=== PATIENT | male | born 1975 | race American Indian/Alaskan Native ===

== ENCOUNTER 2017-10-21 22:02 | Emergency (ER) | payer BC, OTHER ==
[2017-10-21] MEDS ORDERED: Clindamycin Phosphate 900 MG in Sodium Chloride 0.9% 100 ML IV ONE (22:33)
--- NOTE | 2017-10-21 22:37 | EDM.PDOC ---
ED HPI GENERAL MEDICAL PROBLEM - General Chief Complaint: Skin Complaint Stated Complaint: ABSCESS BACK OF NECK [id number] Time Seen by Provider: 10/21/17 22:35 Source of Information: Reports: Patient History Limitations: Reports: No Limitations - History of Present Illness INITIAL COMMENTS - FREE TEXT/NARRATIVE: c/o worsening of abscess back of neck past week. has appt for CAT next week but feeling worse tonight from getting bigger & painful Posterior Neck Pain Score (Numeric/FACES): 6 - Related Data Allergies Allergy/AdvReac Type Severity Reaction Status Date / Time Penicillins Allergy Unknown Cannot Verified 10/21/17 22:22 Remember adhesive Allergy Swelling Verified 10/21/17 22:22 ammonium alum [From Carmex] Allergy Swelling Verified 10/21/17 22:22 bacitracin Allergy Swelling Verified 10/21/17 22:22 bacitracin zinc Allergy Swelling Verified 10/21/17 22:22 [From Neosporin ([id number])] camphor* [From Carmex] Allergy Swelling Verified 10/21/17 22:22 menthol [From Carmex] Allergy Swelling Verified 10/21/17 22:22 neomycin sulfate Allergy Swelling Verified 10/21/17 22:22 [From Neosporin ([id number])] phenol [From Carmex] Allergy Swelling Verified 10/21/17 22:22 polymyxin B Allergy Swelling Verified 10/21/17 22:22 [From Neosporin ([id number]-jgn-[id number])] salicylic acid [From Carmex] Allergy Swelling Verified 10/21/17 22:22 tomato Allergy Rash Verified 10/21/17 22:22 Home Meds: Home Meds Metoprolol Tartrate 100 mg PO DAILY 08/10/13 [History] Budesonide/Formoterol Fumarate [Symbicort 80-4.5 Mcg Inhaler] 1 puff INH ASDIRECTED PRN 06/24/15 [History] Albuterol Sulfate [Proair Hfa] 2 puff INH QID PRN 12/12/15 [History] Past Medical History HEENT History: Reports: Impaired Vision Other HEENT History: wears corrective lenses Cardiovascular History: Reports: Hypertension Respiratory History: Reports: Asthma Musculoskeletal History: Reports: Fracture - Infectious Disease History Infectious Disease History: Reports: Chicken Pox - Past Surgical History GI Surgical History: Reports: Cholecystectomy Social & Family History - Family History Family Medical History: Noncontributory - Tobacco Use Smoking Status *Q: Former Smoker Years of Tobacco use: 23 Packs/Tins Daily: 1.5 Used Tobacco, but Quit: Yes Month/Year Tobacco Last Used: 24 Second Hand Smoke Exposure: No - Caffeine Use Caffeine Use: Reports: Coffee, Tea - Alcohol Use Days Per Week of Alcohol Use: 0 - Recreational Drug Use Recreational Drug Use: No ED ROS GENERAL - Review of Systems Review Of Systems: ROS reveals no pertinent complaints other than HPI. ED EXAM, SKIN/RASH Exam: See Below Exam Limited By: No Limitations General Appearance: Alert, WD/WN, Mild Distress, Other ([place]) Ears: Hearing Grossly Normal Throat/Mouth: Normal Voice, No Airway Compromise Head: Atraumatic Neck: Non-Tender, Full Range of Motion Respiratory/Chest: No Respiratory Distress Cardiovascular: Regular Rate, Rhythm GI/Abdominal: Soft, Non-Tender Neurological: Alert, Oriented, Normal Cognition, Normal Gait, No Motor/Sensory Deficits Psychiatric: Flat Affect Skin: Warm, Intact, Normal Color Location, Skin: Neck Characteristics: Other (abscess) Associated features: Warmth, Tenderness, Swelling, Inflammation. No: Lymphangitis Course - Vital Signs Last Recorded V/S: Last Vital Signs Temp 37.6 C 10/22/17 00:53 Pulse 105 H 10/22/17 00:53 Resp 20 10/22/17 00:53 BP 134/83 10/22/17 00:53 Pulse Ox 98 10/22/17 00:53 - Orders/Labs/Meds Orders: Active Orders 24 hr Category Date Time Status CULTURE BLOOD [BC] Stat Lab 10/21/17 22:45 Received Sodium Chloride 0.9% [Normal Saline] 1,000 ml Med 10/21/17 22:45 Active IV ASDIRECTED Medication Orders Sodium Chloride (Normal Saline) 1,000 mls @ 500 mls/hr IV ASDIRECTED GENNY Last Admin: 10/21/17 23:30 Dose: 500 mls/hr Labs: Laboratory Tests 10/21/17 10/21/17 10/21/17 Range/Units 22:48 22:48 22:48 WBC 13.2 H (5.0-10.0) 10^3/uL RBC 4.95 (4.6-6.2) 10^6/uL Hgb 13.5 L (14.0-18.0) g/dL Hct 41.1 (40.0-54.0) % MCV 83.0 (80-100) fL MCH 27.3 (27.0-34.0) pg MCHC 32.8 L (33.0-35.0) g/dL Plt Count 312 (150-450) 10^3/uL Neut % (Auto) 71.3 (42.2-75.2) % Lymph % (Auto) 20.3 L (20.5-50.1) % [place] % (Auto) 6.6 (2-8) % Eos % (Auto) 1.6 (1.0-3.0) % Baso % (Auto) 0.2 (0.0-1.0) % Sodium 133 L (135-145) mmol/L Potassium 3.9 (3.6-5.0) mmol/L Chloride 98 L (101-111) mmol/L Carbon Dioxide 27.0 (21.0-31.0) mmol/L Anion Gap 11.9 BUN 10 (7-18) mg/dL Creatinine 0.7 (0.6-1.3) mg/dL Est Cr Clr Drug Dosing 165.98 mL/min Estimated GFR (MDRD) > 60 BUN/Creatinine Ratio 14.28 Glucose 106 H (74-105) mg/dL Lactic Acid 1.3 (0.5-2.2) mmol/L Calcium 8.7 (8.4-10.2) mg/dl Total Bilirubin 0.5 (0.2-1.0) mg/dL AST 20 (10-42) IU/L ALT 20 (10-60) IU/L Alkaline Phosphatase 68 (42-121) IU/L Total Protein 9.1 H (6.7-8.2) g/dl Albumin 3.0 L (3.2-5.5) g/dl Globulin 6.1 Albumin/Globulin Ratio 0.49 Meds: Medications Generic Name Dose Route Start Last Admin Trade Name Freq PRN Reason Stop Dose Admin Sodium Chloride 1,000 mls @ 500 mls/hr 10/21/17 22:45 10/21/17 23:30 Normal Saline IV 500 mls/hr ASDIRECTED GENNY Administration Discontinued Medications Generic Name Dose Route Start Last Admin Trade Name Freq PRN Reason Stop Dose Admin Hydrocodone Bitart/Acetaminophen 1 tab 10/22/17 01:09 [place] 325-10 Mg PO 10/22/17 01:10 ONETIME ONE Clindamycin Phosphate 900 mg/ 106 mls @ 200 mls/hr 10/21/17 22:33 10/21/17 22 :57 Sodium Chloride IV 10/21/17 23:04 200 mls/hr ONETIME ONE Administration Iopamidol 100 ml 10/21/17 23:37 10/21/17 23:47 Isovue-300 (61%) IVPUSH 10/21/17 23:38 100 ml ONETIME ONE Administration - Re-Assessments/Exams Free Text/Narrative Re-Assessment/Exam: 10/22/17 01:[address] Rey @ who kindly accepted pt. Departure - Departure Time of Disposition: 01:11 Disposition: DC/Tfer to Acute Hospital 02 Condition: Good Clinical Impression: Abscess - Discharge Information Forms: Interfacility Transfer EMTALA - My Orders Last 24 Hours: My Active Orders 10/21/17 22:45 CULTURE BLOOD [BC] Stat Sodium Chloride 0.9% [Normal Saline] 1,000 ml IV ASDIRECTED - Assessment/Plan Last 24 Hours: My Active Orders 10/21/17 22:45 CULTURE BLOOD [BC] Stat Sodium Chloride 0.9% [Normal Saline] 1,000 ml IV ASDIRECTED
[2017-10-21] MEDS ORDERED: Sodium Chloride 0.9% 1,000 ML IV SCH (22:45)
[2017-10-21 23:16] LABS: ANION GAP 11.9; CHLORIDE,CL 98 mmol/L (101-111); SODIUM,NA 133 mmol/L (135-145)
[2017-10-21] MEDS ORDERED: Iopamidol 612 MG/ML 100 ML Bottle IVPUSH ONE (23:37)
[2017-10-22 00:54] VITALS: BP 134/83
[2017-10-22] MEDS ORDERED: Acetaminophen/HYDROcodone 325-10 MG Tab PO ONE (01:09)
== END 2017-10-22 01:30 ==
LOC: DL.ED 22:02
DX: L02.11 Cutaneous abscess of neck (principal); I10 Essential (primary) hypertension; Z88.0 Allergy status to penicillin; Z88.8 Allergy status to other drugs, medicaments and biological substances; Z91.018 Allergy to other foods; Z79.899 Other long term (current) drug therapy; Z87.891 Personal history of nicotine dependence
CPT/HCPCS: 36415; 70491; 80053; 83605; 85025; 87040; 96361; 96365; 99284; A9270; J7030; J7050; Q9967; S0077

== ENCOUNTER 2017-10-25 21:35 | Emergency (ER) | payer BC, OTHER ==
[2017-10-25 22:35] LABS: CHLORIDE,CL 94 mmol/L (101-111); SODIUM,NA 132 mmol/L (135-145)
[2017-10-25] MEDS ORDERED: cefTRIAXone 2 GM, Lidocaine 1% 4.2 ML IM ONE ×2 (23:38)
--- NOTE | 2017-10-25 23:45 | EDM.PDOC ---
ED HPI GENERAL MEDICAL PROBLEM - General Chief Complaint: Fever Stated Complaint: [id number] POST SURG- FEVER SHAKES SOB Time Seen by Provider: 10/25/17 23:41 Source of Information: Reports: Patient History Limitations: Reports: No Limitations - History of Present Illness INITIAL COMMENTS - FREE TEXT/NARRATIVE: increased cough, fever. area around abscess on right side getting bigger, No increase in drainage or redness Treatments BARYTES GRINDER: Reports: Acetaminophen, NSAIDS Neck Pain Score (Numeric/FACES): 3 - Related Data Allergies Allergy/AdvReac Type Severity Reaction Status Date / Time Penicillins Allergy Unknown Cannot Verified 10/25/17 21:52 Remember adhesive Allergy Swelling Verified 10/25/17 21:52 ammonium alum [From Carmex] Allergy Swelling Verified 10/25/17 21:52 bacitracin Allergy Swelling Verified 10/25/17 21:52 bacitracin zinc Allergy Swelling Verified 10/25/17 21:52 [From Neosporin ([id number])] camphor* [From Carmex] Allergy Swelling Verified 10/25/17 21:52 menthol [From Carmex] Allergy Swelling Verified 10/25/17 21:52 neomycin sulfate Allergy Swelling Verified 10/25/17 21:52 [From Neosporin ([id number]-[id number])] phenol [From Carmex] Allergy Swelling Verified 10/25/17 21:52 polymyxin B Allergy Swelling Verified 10/25/17 21:52 [From Neosporin ([id number]-[id number])] salicylic acid [From Carmex] Allergy Swelling Verified 10/25/17 21:52 tomato Allergy Rash Verified 10/25/17 21:52 Home Meds: Home Meds Metoprolol Tartrate 100 mg PO DAILY 08/10/13 [History] Budesonide/Formoterol Fumarate [Symbicort 80-4.5 Mcg Inhaler] 1 puff INH ASDIRECTED PRN 06/24/15 [History] Albuterol Sulfate [Proair Hfa] 2 puff INH QID PRN 12/12/15 [History] Cephalexin 1 cap PO QID 10/25/17 [History] Clindamycin HCl [Cleocin] 1 cap PO TID 10/25/17 [History] Hydrochlorothiazide 1 tab PO DAILY 10/25/17 [History] Past Medical History HEENT History: Reports: Impaired Vision Other HEENT History: wears corrective lenses Cardiovascular History: Reports: Hypertension Respiratory History: Reports: Asthma Musculoskeletal History: Reports: Fracture Dermatologic History: Reports: Other (See Below) Other Dermatologic History: abcesses in the back of his neck - Infectious Disease History Infectious Disease History: Reports: Chicken Pox - Past Surgical History GI Surgical History: Reports: Cholecystectomy Dermatological Surgical History: Reports: Other (See Below) Social & Family History - Family History Family Medical History: Noncontributory - Tobacco Use Smoking Status *Q: Former Smoker Years of Tobacco use: 26 Packs/Tins Daily: 1.5 Used Tobacco, but Quit: Yes Month/Year Tobacco Last Used: 2015 Second Hand Smoke Exposure: No - Caffeine Use Caffeine Use: Reports: Coffee, Tea - Alcohol Use Days Per Week of Alcohol Use: 0 - Recreational Drug Use Recreational Drug Use: No ED ROS GENERAL - Review of Systems Review Of Systems: See Below Constitutional: Reports: Chills HEENT: Denies: Throat Swelling Respiratory: Reports: Shortness of Breath, Cough. Denies: Wheezing, Sputum Cardiovascular: Reports: No Symptoms GI/Abdominal: Reports: No Symptoms Musculoskeletal: Reports: No Symptoms Skin: Reports: Wound (open surgical incisions in posterior neck from I&D) Neurological: Reports: No Symptoms ED EXAM, GENERAL - Physical Exam Exam: See Below Exam Limited By: No Limitations General Appearance: Alert, No Apparent Distress Eye Exam: Bilateral Eye: EOMI Ears: Normal External Exam, Normal TMs Nose: Normal Inspection Throat/Mouth: Normal Inspection Head: Atraumatic, Normocephalic Neck: Other (posterio surgical incisions to base at collar line left 2cm clean packed scant yellow pink drainage, right 2cm no drainage no packing lateral 2x2cm induration withut redness) Respiratory/Chest: No Respiratory Distress, Lungs Clear Cardiovascular: Normal Peripheral Pulses GI/Abdominal: Normal Bowel Sounds Back Exam: Normal Inspection Extremities: Normal Inspection Neurological: Alert, Oriented Psychiatric: Normal Affect Skin Exam: Warm, Dry, Wound/Incision Course - Vital Signs Last Recorded V/S: Last Vital Signs Temp 97.3 F 10/26/17 00:03 Pulse 91 10/26/17 00:03 Resp 16 10/26/17 00:03 BP 130/73 10/26/17 00:03 Pulse Ox 94 L 10/26/17 00:03 - Orders/Labs/Meds Orders: Active Orders 24 hr Category Date Time Status CULTURE BLOOD [BC] Stat Lab 10/25/17 22:05 Received CULTURE BLOOD [BC] Stat Lab 10/25/17 22:10 Results Blood Culture x2 Reflex Set [OM.PC] Stat Oth 10/25/17 21:52 Ordered Labs: Laboratory Tests 10/25/17 10/25/17 10/25/17 Range/Units 22:05 22:05 22:05 WBC 8.4 (5.0-10.0) 10^3/uL RBC 4.34 L (4.6-6.2) 10^6/uL Hgb 11.8 L D (14.0-18.0) g/dL Hct 36.1 L (40.0-54.0) % MCV 83.2 (80-100) fL MCH 27.2 (27.0-34.0) pg MCHC 32.7 L (33.0-35.0) g/dL Plt Count 264 (150-450) 10^3/uL Neut % (Auto) 72.4 (42.2-75.2) % Lymph % (Auto) 15.5 L (20.5-50.1) % [place] % (Auto) 11.2 H (2-8) % Eos % (Auto) 0.8 L (1.0-3.0) % Baso % (Auto) 0.1 (0.0-1.0) % Sodium 132 L (135-145) mmol/L Potassium 3.5 L (3.6-5.0) mmol/L Chloride 94 L (101-111) mmol/L Carbon Dioxide 30.0 (21.0-31.0) mmol/L Anion Gap 11.5 BUN 10 (7-18) mg/dL Creatinine 0.8 (0.6-1.3) mg/dL Est Cr Clr Drug Dosing 145.23 mL/min Estimated GFR (MDRD) > 60 BUN/Creatinine Ratio 12.50 Glucose 218 H (74-105) mg/dL Lactic Acid 2.5 H (0.5-2.2) mmol/L Calcium 8.1 L (8.4-10.2) mg/dl Total Bilirubin 0.3 (0.2-1.0) mg/dL AST 25 (10-42) IU/L ALT 22 (10-60) IU/L Alkaline Phosphatase 67 (42-121) IU/L Total Protein 8.0 (6.7-8.2) g/dl Albumin 2.9 L (3.2-5.5) g/dl Globulin 5.1 Albumin/Globulin Ratio 0.57 Meds: Medications Discontinued Medications Generic Name Dose Route Start Last Admin Trade Name Shaylee PRN Reason Stop Dose Admin Ceftriaxone Sodium 2 gm/ 0 gm 10/25/17 23:38 10/25/17 23:46 Lidocaine HCl 4.2 ml IM 10/25/17 23:39 4.2 inj ONETIME ONE Administration Departure - Departure Time of Disposition: 23:42 Disposition: Home, Self-Care 01 Condition: Good Clinical Impression: Abscess - Discharge Information Instructions: Skin Abscess, [id number] Referrals: Viral Izaguirre MD [Primary Care Provider] - Forms: ED Department Discharge Care Plan Goals: TC to surgeon in am to update on wound size Nebulizer treatment every 4-6 hours as needed tylenol ibuprofen for fever'/ discomfort warm pack to left neck - My Orders Last 24 Hours: My Active Orders 10/25/17 21:52 Blood Culture x2 Reflex Set [OM.PC] Stat 10/25/17 22:05 CULTURE BLOOD [BC] Stat 10/25/17 22:10 CULTURE BLOOD [BC] Stat - Assessment/Plan Last 24 Hours: My Active Orders 10/25/17 21:52 Blood Culture x2 Reflex Set [OM.PC] Stat 10/25/17 22:05 CULTURE BLOOD [BC] Stat 10/25/17 22:10 CULTURE BLOOD [BC] Stat
[2017-10-26 00:05] VITALS: BP 130/73
== END 2017-10-26 00:09 | disposition home or self-care (01) ==
LOC: DL.ED 21:35
DX: L02.11 Cutaneous abscess of neck (principal); I10 Essential (primary) hypertension; J45.909 Unspecified asthma, uncomplicated; Z88.0 Allergy status to penicillin; Z88.1 Allergy status to other antibiotic agents; Z88.8 Allergy status to other drugs, medicaments and biological substances; Z79.899 Other long term (current) drug therapy; Z87.891 Personal history of nicotine dependence
CPT/HCPCS: 36415; 71046; 80053; 83605; 85025; 87040; 87804; 96372; 99283; J0696

== ENCOUNTER 2019-05-24 08:50 | Emergency (ER) | payer BC, OTHER ==
[2019-05-24] MEDS ORDERED: Albuterol/Ipratropium 3.0-0.5 MG/3 ML Neb Soln NEB ONE (09:47)
[2019-05-24] MEDS ORDERED: methylPREDNISolone Sodium Succinate 125 MG/2 ML SDV IM ONE (10:08)
[2019-05-24 10:43] VITALS: BP 114/49; PULSE 97
--- NOTE | 2019-05-24 12:43 | EDM.PDOC ---
Scribed by Melani Pop 05/24/19 1029 for Mary Kate Membreno NP ED HPI GENERAL MEDICAL PROBLEM - General Chief Complaint: Respiratory Problem Stated Complaint: SICK Time Seen by Provider: 05/24/19 10:00 Source of Information: Reports: Patient, RN, RN Notes Reviewed History Limitations: Reports: No Limitations - History of Present Illness INITIAL COMMENTS - FREE TEXT/NARRATIVE: Patient presents to ER with complaint of 4 days of cough and expiratory wheezes. He has had yellow/green productive for 3 days. He has a history of asthma. Using his inhaler twice a day while sick. No fevers. Mild fatigue Onset Date: 05/21/19 Duration: Getting Worse Location: Reports: Chest, Other (cough) Quality: Reports: Ache Severity: Moderate Improves with: Reports: None Worsens with: Reports: None Associated Symptoms: Reports: No Other Symptoms - Related Data Allergies Allergy/AdvReac Type Severity Reaction Status Date / Time Penicillins Allergy Unknown Cannot Verified 05/24/19 08:59 Remember adhesive Allergy Swelling Verified 05/24/19 08:59 ammonium alum [From Carmex] Allergy Swelling Verified 05/24/19 08:59 bacitracin Allergy Swelling Verified 05/24/19 08:59 bacitracin zinc Allergy Swelling Verified 05/24/19 08:59 [From Neosporin (nny-hfy-cscrt)] camphor* [From Carmex] Allergy Swelling Verified 05/24/19 08:59 menthol [From Carmex] Allergy Swelling Verified 05/24/19 08:59 neomycin sulfate Allergy Swelling Verified 05/24/19 08:59 [From Neosporin ([id number]-[id number]-[id number])] phenol [From Carmex] Allergy Swelling Verified 05/24/19 08:59 polymyxin B Allergy Swelling Verified 05/24/19 08:59 [From Neosporin (cti-bsx-knvsx)] salicylic acid [From Carmex] Allergy Swelling Verified 05/24/19 09:00 tomato Allergy Rash Verified 05/24/19 09:00 Home Meds: Home Meds Metoprolol Tartrate 100 mg PO DAILY 08/10/13 [History] Budesonide/Formoterol Fumarate [Symbicort 80-4.5 MCG] 1 puff INH ASDIRECTED PRN 06/24/15 [History] Albuterol Sulfate [Proair Hfa] 2 puff INH QID PRN 12/12/15 [History] Past Medical History HEENT History: Reports: Impaired Vision Other HEENT History: wears corrective lenses Cardiovascular History: Reports: Hypertension Respiratory History: Reports: Asthma Musculoskeletal History: Reports: Fracture Dermatologic History: Reports: Other (See Below) Other Dermatologic History: abcesses in the back of his neck - Infectious Disease History Infectious Disease History: Reports: Chicken Pox - Past Surgical History GI Surgical History: Reports: Cholecystectomy Dermatological Surgical History: Reports: Other (See Below) Social & Family History - Family History Family Medical History: Noncontributory - Caffeine Use Caffeine Use: Reports: Coffee, Tea ED ROS GENERAL - Review of Systems Review Of Systems: ROS reveals no pertinent complaints other than HPI. ED EXAM, GENERAL - Physical Exam Exam: See Below Exam Limited By: No Limitations General Appearance: Alert, WD/WN, No Apparent Distress Eye Exam: Bilateral Eye: EOMI, Normal Inspection, PERRL Ears: Normal External Exam, Normal Canal, Hearing Grossly Normal, Normal TMs Nose: Normal Inspection, Normal Mucosa, No Blood Throat/Mouth: Normal Inspection, Normal Lips, Normal Teeth, Normal Gums, Normal Oropharynx, Normal Voice, No Airway Compromise Head: Atraumatic, Normocephalic Neck: Normal Inspection, Supple, Non-Tender, Full Range of Motion Respiratory/Chest: Other (bilateral mild expiratory wheeze. DuoNeb treatment x1. Improved after treatment but still mild exp wheeze) Cardiovascular: Normal Peripheral Pulses, Regular Rate, Rhythm, No Edema, No Gallop, No JVD, No Murmur, No Rub GI/Abdominal: Normal Bowel Sounds, Soft, Non-Tender, No Organomegaly, No Distention, No Abnormal Bruit, No Mass (Male) Exam: Deferred Rectal (Males) Exam: Deferred Back Exam: Normal Inspection, Full Range of Motion, NT Extremities: Normal Inspection, Normal Range of Motion, Non-Tender, Normal Capillary Refill, No Pedal Edema Neurological: Alert, Oriented, CN II-XII Intact, Normal Cognition, Normal Gait, Normal Reflexes, No Motor/Sensory Deficits Psychiatric: Normal Affect, Normal Mood Skin Exam: Warm, Dry, Intact, Normal Color, No Rash Course - Vital Signs Last Recorded V/S: Last Vital Signs Temp 37.0 C 05/24/19 10:38 Pulse 97 05/24/19 10:38 Resp 20 05/24/19 10:38 BP 114/49 L 05/24/19 10:38 Pulse Ox 0 L 05/24/19 10:38 - Orders/Labs/Meds Orders: Active Orders 24 hr Category Date Time Status RT Aerosol Therapy [RC] ASDIRECTED Care 05/24/19 09:48 Active Meds: Medications Discontinued Medications Generic Name Dose Route Start Last Admin Trade Name Freq PRN Reason Stop Dose Admin Albuterol/Ipratropium 3 ml 05/24/19 09:47 05/24/19 09:55 Duoneb 3.0-0.5 Mg/3 Ml NEB 05/24/19 09:48 3 ml ONETIME ONE Administration Methylprednisolone Sodium Succinate 125 mg 05/24/19 10:08 05/24/19 10:18 Solu-Medrol IM 05/24/19 10:09 125 mg ONETIME ONE Administration - Re-Assessments/Exams Free Text/Narrative Re-Assessment/Exam: 05/24/19 12:41 Improved after duo neb; better air exchange; 02 sat 93% after tx. With exp wheeze continued; will give solumedrol IM and sent home on prednisone, duonebs. Departure - Departure Time of Disposition: 10:25 Disposition: Home, Self-Care 01 Condition: Good Clinical Impression: Bronchitis Exacerbation of asthma Qualifiers: Asthma severity: moderate Asthma persistence: unspecified Qualified Code(s): J45.901 - Unspecified asthma with (acute) exacerbation - Discharge Information *PRESCRIPTION DRUG MONITORING PROGRAM REVIEWED*: Not Applicable *COPY OF PRESCRIPTION DRUG MONITORING REPORT IN PATIENT CHUNG: Not Applicable Instructions: Asthma, Adult Referrals: Stewart Michaud [Primary Care Provider] - Forms: ED Department Discharge Additional Instructions: Increase your neb or inhaler to q 4 hours x 1 week; then back to your usual. Prednisone - start tonight. 40 mg. Azithromyicn - Take two tab now. Return if not improving - My Orders Last 24 Hours: My Active Orders 05/24/19 09:48 RT Aerosol Therapy [RC] ASDIRECTED - Assessment/Plan Last 24 Hours: My Active Orders 05/24/19 09:48 RT Aerosol Therapy [RC] ASDIRECTED I have read and agree with the documentation that has been completed regarding this visit. By signing this record, I attest that the documentation was completed in my physical presence and is an accurate record of the encounter.
== END 2019-05-24 10:38 | disposition home or self-care (01) ==
LOC: DL.ED 08:50
DX: J45.901 Unspecified asthma with (acute) exacerbation (principal); I10 Essential (primary) hypertension; Z88.0 Allergy status to penicillin; Z88.8 Allergy status to other drugs, medicaments and biological substances; Z88.1 Allergy status to other antibiotic agents; Z91.018 Allergy to other foods; Z91.048 Other nonmedicinal substance allergy status; Z79.899 Other long term (current) drug therapy
CPT/HCPCS: 94640; 96372; 99283; J2930; J7620-GY

== ENCOUNTER 2019-09-13 09:51 | Emergency (ER) | payer BC, OTHER ==
[2019-09-13 10:12] VITALS: BP 131/76; PULSE 77
[2019-09-13] MEDS ORDERED: Clindamycin Phosphate 900 MG in Sodium Chloride 0.9% 100 ML IV ONE (10:21)
[2019-09-13] MEDS ORDERED: Lidocaine 1% 30 ML SDV INJECT ONE (10:21)
[2019-09-13] MEDS ORDERED: Bupivacaine 0.25% 10 ML SDV INJECT ONE (10:22)
[2019-09-13] MEDS ORDERED: HYDROmorphone 1 MG/ML Syringe IVPUSH ONE (10:22)
[2019-09-13] MEDS ORDERED: Ondansetron 4 MG/2 ML SDV IV ONE (10:22)
[2019-09-13] MEDS ORDERED: Bupivacaine 0.25% 10 ML SDV ONE (10:37)
[2019-09-13 10:54] LABS: ANION GAP 12.9; CHLORIDE,CL 99 mmol/L (101-111); SODIUM,NA 133 mmol/L (135-145)
--- NOTE | 2019-09-13 11:22 | EDM.PDOC ---
Scribed by Melani Pop 09/13/19 1120 for Neeraj Brenner MD ED HPI GENERAL MEDICAL PROBLEM - General Chief Complaint: Skin Complaint Stated Complaint: INFECTION Time Seen by Provider: 09/13/19 10:07 Source of Information: Reports: Patient, RN, RN Notes Reviewed History Limitations: Reports: No Limitations - History of Present Illness INITIAL COMMENTS - FREE TEXT/NARRATIVE: Patient presents to ER by POV with two day history of draining abscess to right axilla. He has had these before. Denies being told of any history of MRSA. He states it has stopped draining now. Has not had any antibiotics in last month. Onset Date: 09/11/19 Duration: Getting Worse Location: Reports: Other (right axilla) Quality: Reports: Ache, Stabbing Improves with: Reports: None Worsens with: Reports: None Associated Symptoms: Reports: No Other Symptoms Right Axillary Pain Score (Numeric/FACES): 6 - Related Data Allergies Allergy/AdvReac Type Severity Reaction Status Date / Time Penicillins Allergy Unknown Cannot Verified 09/13/19 10:12 Remember adhesive Allergy Swelling Verified 09/13/19 10:12 ammonium alum [From Carmex] Allergy Swelling Verified 09/13/19 10:12 bacitracin Allergy Swelling Verified 09/13/19 10:12 bacitracin zinc Allergy Swelling Verified 09/13/19 10:12 [From Neosporin ([id number])] camphor* [From Carmex] Allergy Swelling Verified 09/13/19 10:12 menthol [From Carmex] Allergy Swelling Verified 09/13/19 10:12 neomycin sulfate Allergy Swelling Verified 09/13/19 10:12 [From Neosporin ([id number])] phenol [From Carmex] Allergy Swelling Verified 09/13/19 10:12 polymyxin B Allergy Swelling Verified 09/13/19 10:12 [From Neosporin ([id number])] salicylic acid [From Carmex] Allergy Swelling Verified 09/13/19 10:12 tomato Allergy Rash Verified 09/13/19 10:12 Home Meds: Home Meds Metoprolol Tartrate 100 mg PO DAILY 08/10/13 [History] Budesonide/Formoterol Fumarate [Symbicort 80-4.5 MCG] 1 puff INH ASDIRECTED PRN 06/24/15 [History] Albuterol Sulfate [Proair Hfa] 2 puff INH QID PRN 12/12/15 [History] Past Medical History HEENT History: Reports: Impaired Vision Other HEENT History: wears corrective lenses Cardiovascular History: Reports: Hypertension Respiratory History: Reports: Asthma Gastrointestinal History: Reports: Cholelithiasis Genitourinary History: Reports: None Musculoskeletal History: Reports: Fracture Neurological History: Reports: None Psychiatric History: Reports: None Endocrine/Metabolic History: Reports: Diabetes, Type II Hematologic History: Reports: None Immunologic History: Reports: None Oncologic (Cancer) History: Reports: None Dermatologic History: Reports: Other (See Below) Other Dermatologic History: abcesses in the back of his neck - Infectious Disease History Infectious Disease History: Reports: Chicken Pox - Past Surgical History GI Surgical History: Reports: Cholecystectomy Dermatological Surgical History: Reports: Other (See Below) Social & Family History - Family History Family Medical History: Noncontributory - Caffeine Use Caffeine Use: Reports: Coffee, Tea - Living Situation & Occupation Living situation: Reports: , with Spouse Occupation: Employed ED ROS GENERAL - Review of Systems Review Of Systems: Comprehensive ROS is negative, except as noted in HPI. ED EXAM, SKIN/RASH Exam: See Below Exam Limited By: No Limitations General Appearance: Alert, No Apparent Distress, Obese Head: Atraumatic, Normocephalic Respiratory/Chest: No Respiratory Distress, Lungs Clear, Normal Breath Sounds, No Accessory Muscle Use, Chest Non-Tender Cardiovascular: Regular Rate, Rhythm Neurological: Alert, Oriented, No Motor/Sensory Deficits Psychiatric: Normal Mood Skin: Warm, Dry Location, Skin: Axillary (Rt with 3cm fluctuant abscess and 20cm mayank. surrounding erythema consistent with cellulitis.) ED SKIN PROCEDURES - I&D Site: Rt axills/chest wall Skin Prep: Chlorhexidine (Hibiciens), Saline, Sterile Drape Local Anesthesia: Lidocaine: 1% Plain (20cc) Area Incised With: 11 Blade Drainage: Purulent, Small Amount Probed to Break Up Loculations: Yes Packed With: 1/4 in. Iodoform Sterile Dressinx4(s) Complications: No Course - Vital Signs Last Recorded V/S: Last Vital Signs Temp 97 F 09/13/19 10:09 Pulse 77 09/13/19 10:09 Resp 16 09/13/19 10:09 BP 131/76 09/13/19 10:09 Pulse Ox 96 09/13/19 10:09 - Orders/Labs/Meds Orders: Active Orders 24 hr Category Date Time Status CULTURE WOUND [RM] Stat Lab 09/13/19 10:36 Received LACTIC ACID [CHEM] Stat Lab 09/13/19 10:28 Received Labs: Laboratory Tests 09/13/19 09/13/19 09/13/19 Range/Units 10:28 10:28 10:28 WBC 8.8 (5.0-10.0) 10^3/uL RBC 4.81 (4.6-6.2) 10^6/uL Hgb 13.6 L D (14.0-18.0) g/dL Hct 40.5 (40.0-54.0) % MCV 84.2 (80-100) fL MCH 28.3 (27.0-34.0) pg MCHC 33.6 (33.0-35.0) g/dL Plt Count 304 (150-450) 10^3/uL Neut % (Auto) 56.7 (42.2-75.2) % Lymph % (Auto) 31.9 (20.5-50.1) % [place] % (Auto) 8.9 H (2-8) % Eos % (Auto) 2.3 (1.0-3.0) % Baso % (Auto) 0.2 (0.0-1.0) % Sodium 133 L (135-145) mmol/L Potassium 3.9 (3.6-5.0) mmol/L Chloride 99 L (101-111) mmol/L Carbon Dioxide 25.0 (21.0-31.0) mmol/L Anion Gap 12.9 BUN 15 (7-18) mg/dL Creatinine 0.7 (0.6-1.3) mg/dL Est Cr Clr Drug Dosing 164.31 mL/min Estimated GFR (MDRD) > 60 Glucose 105 (74-105) mg/dL Calcium 9.0 (8.4-10.2) mg/dl C-Reactive Protein 1.2 (0.0-1.3) mg/dL Meds: Medications Discontinued Medications Generic Name Dose Route Start Last Admin Trade Name Freq PRN Reason Stop Dose Admin Bupivacaine HCl 10 ml 09/13/19 10:22 09/13/19 10:39 Sensorcaine-Mpf 0.25% INJECT 09/13/19 10:23 10 ml ONETIME ONE Administration Bupivacaine HCl Confirm 09/13/19 10:37 Sensorcaine-Mpf 0.25% Administered 09/13/19 10:38 Dose 10 ml .ROUTE .STK-MED ONE Hydromorphone HCl 1 mg 09/13/19 10:22 09/13/19 10:37 Dilaudid IVPUSH 09/13/19 10:23 1 mg ONETIME ONE Administration Clindamycin Phosphate 900 mg/ 106 mls @ 200 mls/hr 09/13/19 10:21 09/13/19 10 :36 Sodium Chloride IV 09/13/19 10:52 200 mls/hr ONETIME ONE Administration Lidocaine HCl 30 ml 09/13/19 10:21 09/13/19 10:38 Xylocaine-Mpf 1% INJECT 09/13/19 10:22 30 ml ONETIME ONE Administration Ondansetron HCl 4 mg 09/13/19 10:22 09/13/19 10:36 Zofran IV 09/13/19 10:23 4 mg ONETIME ONE Administration Departure - Departure Time of Disposition: 11:18 Disposition: Home, Self-Care 01 Condition: Good Clinical Impression: Abscess of right axilla, Cellulitis of axilla, right - Discharge Information *PRESCRIPTION DRUG MONITORING PROGRAM REVIEWED*: Not Applicable *COPY OF PRESCRIPTION DRUG MONITORING REPORT IN PATIENT CHUNG: Not Applicable Instructions: Skin Abscess, Cellulitis, Adult, Incision and Drainage, Care After Forms: ED Department Discharge Additional Instructions: Rx: Clindamycin 300mg Rx: Doxycycline 100mg Rx: [place] (Hydrocodone) 5mg/325mg If packing does not fall out on its own you may pull it out tomorrow. Follow up in clinic Sunday for recheck. Return to ER worse at any time. Sepsis Event Note - Focused Exam Vital Signs: Vital Signs Temp Pulse Resp BP Pulse Ox 09/13/19 10:09 97 F 77 16 131/76 96 Date Exam was Performed: 09/13/19 Time Exam was Performed: 11:17 - My Orders Last 24 Hours: My Active Orders 09/13/19 10:28 LACTIC ACID [CHEM] Stat 09/13/19 10:36 CULTURE WOUND [RM] Stat - Assessment/Plan Last 24 Hours: My Active Orders 09/13/19 10:28 LACTIC ACID [CHEM] Stat 09/13/19 10:36 CULTURE WOUND [RM] Stat I have read and agree with the documentation that has been completed regarding this visit. By signing this record, I attest that the documentation was completed in my physical presence and is an accurate record of the encounter.
== END 2019-09-13 11:22 | disposition home or self-care (01) ==
LOC: DL.ED 09:51
DX: L02.411 Cutaneous abscess of right axilla (principal); L03.111 Cellulitis of right axilla; Z90.49 Acquired absence of other specified parts of digestive tract
CPT/HCPCS: 10061; 36415; 80048; 83605; 85025; 86140; 87070; 87077; 87186; 96365; 96375; 99283; J1170; J2001; J2405; J3490; J7050; 10060

== ENCOUNTER 2020-06-30 17:24 | Emergency (ER) | payer BC, OTHER ==
[2020-06-30] MEDS ORDERED: Apixaban 5 MG Tab PO ONE (17:25)
[2020-06-30 17:52] VITALS: BP 139/75; PULSE 86
--- NOTE | 2020-06-30 18:07 | EDM.PDOC ---
ED HPI GENERAL MEDICAL PROBLEM - General Chief Complaint: Chest Pain Stated Complaint: HEART Time Seen by Provider: 06/30/20 17:50 Source of Information: Reports: Patient, Provider History Limitations: Reports: No Limitations - History of Present Illness INITIAL COMMENTS - FREE TEXT/NARRATIVE: This 44 yo male patient reports to the ED from the [facility] due to a 10 second episode of chest pain at 1300 today and an EKG demonstrating new onset A fib. The patient also had an EKG done on 06/28/20 demonstrating A fib. The patient reports no history of similar reports and no additional episodes of chest pain. Onset: Today Duration: Improving Location: Reports: Chest (left sided chest pain) Quality: Reports: Ache Severity: Mild Improves with: Reports: None Worsens with: Reports: None Context: Reports: Other Associated Symptoms: Reports: No Other Symptoms - Related Data Allergies Allergy/AdvReac Type Severity Reaction Status Date / Time Penicillins Allergy Unknown Cannot Verified 06/30/20 17:43 Remember adhesive Allergy Swelling Verified 06/30/20 17:43 ammonium alum [From Carmex] Allergy Swelling Verified 06/30/20 17:43 bacitracin Allergy Swelling Verified 06/30/20 17:43 bacitracin zinc Allergy Swelling Verified 06/30/20 17:43 [From Neosporin ([id number])] camphor* [From Carmex] Allergy Swelling Verified 06/30/20 17:43 menthol [From Carmex] Allergy Swelling Verified 06/30/20 17:43 neomycin sulfate Allergy Swelling Verified 06/30/20 17:43 [From Neosporin ([id number])] phenol [From Carmex] Allergy Swelling Verified 06/30/20 17:43 polymyxin B Allergy Swelling Verified 06/30/20 17:43 [From Neosporin ([id number])] salicylic acid [From Carmex] Allergy Swelling Verified 06/30/20 17:43 tomato Allergy Rash Verified 06/30/20 17:43 Home Meds: Home Meds Metoprolol Tartrate 100 mg PO DAILY 08/10/13 [History] Cetirizine [ZyrTEC] 10 mg PO DAILY 06/30/20 [History] Citalopram [Citalopram HBr] 20 mg PO DAILY 06/30/20 [History] Furosemide 20 mg PO DAILY 06/30/20 [History] Losartan [Cozaar] 50 mg PO DAILY 06/30/20 [History] Mometasone/Formoterol [Dulera 200 Mcg/5 Mcg Inhaler] 2 puff IH BID 06/30/20 [History] metFORMIN [Glucophage] 850 mg PO BID 06/30/20 [History] Past Medical History HEENT History: Reports: Impaired Vision Other HEENT History: wears corrective lenses Cardiovascular History: Reports: Hypertension Respiratory History: Reports: Asthma Gastrointestinal History: Reports: Cholelithiasis Genitourinary History: Reports: None Musculoskeletal History: Reports: Fracture Neurological History: Reports: None Psychiatric History: Reports: None, Depression Endocrine/Metabolic History: Reports: Diabetes, Type II Hematologic History: Reports: None Immunologic History: Reports: None Oncologic (Cancer) History: Reports: None Dermatologic History: Reports: Other (See Below) Other Dermatologic History: abcesses in the back of his neck - Infectious Disease History Infectious Disease History: Reports: Chicken Pox, Novel Coronavirus - Past Surgical History Head Surgeries/Procedures: Reports: None GI Surgical History: Reports: Cholecystectomy Dermatological Surgical History: Reports: Other (See Below) Social & Family History - Family History Family Medical History: No Pertinent Family History - Tobacco Use Tobacco Use Status *Q: Former Tobacco User Used Tobacco, but Quit: Yes Month/Year Tobacco Last Used: 08/2014 - Caffeine Use Caffeine Use: Reports: None - Recreational Drug Use Recreational Drug Use: No - Living Situation & Occupation Living situation: Reports: , with Spouse Occupation: Employed ED ROS GENERAL - Review of Systems Review Of Systems: Comprehensive ROS is negative, except as noted in HPI. ED EXAM, GENERAL - Physical Exam Exam: See Below Exam Limited By: No Limitations General Appearance: Alert, WD/WN, No Apparent Distress, Obese Eye Exam: Bilateral Eye: EOMI, Normal Inspection, PERRL Ears: Normal External Exam, Normal Canal, Hearing Grossly Normal, Normal TMs Nose: Normal Inspection, Normal Mucosa, No Blood Throat/Mouth: Normal Inspection, Normal Lips, Normal Teeth, Normal Gums, Normal Oropharynx, Normal Voice, No Airway Compromise Head: Atraumatic, Normocephalic Neck: Normal Inspection, Supple, Non-Tender, Full Range of Motion Respiratory/Chest: No Respiratory Distress, Lungs Clear, Normal Breath Sounds, No Accessory Muscle Use, Chest Non-Tender Cardiovascular: Normal Peripheral Pulses, No Edema, No Gallop, No JVD, No Murmur, No Rub, Irregularly Irregular GI/Abdominal: Normal Bowel Sounds, Soft, Non-Tender, No Organomegaly, No Distention, No Abnormal Bruit, No Mass, Pelvis Stable, Other (obese) (Male) Exam: Deferred Rectal (Males) Exam: Deferred Back Exam: Normal Inspection, Full Range of Motion, NT Extremities: Normal Inspection, Normal Range of Motion, Non-Tender, Normal Capillary Refill, No Pedal Edema Neurological: Alert, Oriented, CN II-XII Intact, Normal Cognition, Normal Gait, Normal Reflexes, No Motor/Sensory Deficits Psychiatric: Normal Affect, Normal Mood Skin Exam: Warm, Dry, Intact, Normal Color, No Rash Lymphatic: No Adenopathy Course - Vital Signs Last Recorded V/S: Last Vital Signs Temp 36.6 C 06/30/20 17:48 Pulse 86 06/30/20 17:48 Resp 22 H 06/30/20 17:48 BP 139/75 06/30/20 17:48 Pulse Ox 98 06/30/20 17:48 - Orders/Labs/Meds Orders: Active Orders 24 hr Category Date Time Status EKG Documentation Completion [RC] STAT Care 06/30/20 17:35 Active CULTURE BLOOD [BC] Stat Lab 06/30/20 17:35 Ordered Labs: Laboratory Tests 06/30/20 06/30/20 06/30/20 Range/Units 17:55 17:55 17:55 WBC 10.7 H (5.0-10.0) 10^3/uL RBC 4.83 (4.6-6.2) 10^6/uL Hgb 13.8 L (14.0-18.0) g/dL Hct 41.5 (40.0-54.0) % MCV 85.9 (80-100) fL MCH 28.6 (27.0-34.0) pg MCHC 33.3 (33.0-35.0) g/dL Plt Count 284 (150-450) 10^3/uL Neut % (Auto) 62.9 (42.2-75.2) % Lymph % (Auto) 28.3 (20.5-50.1) % [place] % (Auto) 7.2 (2-8) % Eos % (Auto) 1.4 (1.0-3.0) % Baso % (Auto) 0.2 (0.0-1.0) % Sodium 137 (136-145) mmol/L Potassium 4.0 (3.5-5.1) mmol/L Chloride 100 (98-107) mmol/L Carbon Dioxide 29 (21-32) mmol/L Anion Gap 12.0 (7-13) mEq/L BUN 18 (7-18) mg/dL Creatinine 0.95 (0.70-1.30) mg/dL Est Cr Clr Drug Dosing 119.83 mL/min Estimated GFR (MDRD) > 60 BUN/Creatinine Ratio 18.9 (No establ ref range) Glucose 100 H (74-99) mg/dL Lactic Acid 1.3 (0.4-2.0) mmol/L Calcium 9.0 (8.5-10.1) mg/dL Total Bilirubin 0.4 (0.2-1.0) mg/dL AST 21 (15-37) U/L ALT 41 (16-63) U/L Alkaline Phosphatase 81 (46-116) U/L Troponin I < 0.017 (0.000-0.056) ng/mL Total Protein 8.6 H (6.4-8.2) g/dL Albumin 3.3 L (3.4-5.0) g/dL Globulin 5.3 Albumin/Globulin Ratio 0.62 Departure - Departure Time of Disposition: 19:00 Disposition: Home, Self-Care 01 Condition: Fair Clinical Impression: Atrial fibrillation, new onset Instructions: Atrial Fibrillation, [id number] Forms: ED Department Discharge Care Plan Goals: The patient was advised of the examination, lab and EKG results during the visit. The patient was given an oral dose of Eloquis (5 mg) while in the ED. The patient was discharged with Eloquis (5 mg) #3 to take 1 by mouth 2 times per day and a script for Eloquis (5 mg) #60 to take 1 by mouth 2 times per day. The patient should follow-up with his primary care facility for continued evaluation and management. If the patient has any additional symptoms or concerns the patient should either return to the emergency department or visit his primary care facility. Sepsis Event Note (ED) - Evaluation Sepsis Screening Result: No Definite Risk - Focused Exam Vital Signs: Vital Signs Temp Pulse Resp BP Pulse Ox 06/30/20 17:48 36.6 C 86 22 H 139/75 98 - My Orders Last 24 Hours: My Active Orders 06/30/20 17:35 EKG Documentation Completion [RC] STAT CULTURE BLOOD [BC] Stat - Assessment/Plan Last 24 Hours: My Active Orders 06/30/20 17:35 EKG Documentation Completion [RC] STAT CULTURE BLOOD [BC] Stat
[2020-06-30 18:34] LABS: CHLORIDE,CL 100 mmol/L (98-107); SODIUM,NA 137 mmol/L (136-145)
[2020-06-30] MEDS ORDERED: Apixaban 5 MG Tab ONE (19:02)
== END 2020-06-30 19:14 | disposition home or self-care (01) ==
LOC: DL.ED 17:24
DX: I48.91 Unspecified atrial fibrillation (principal); I10 Essential (primary) hypertension; J45.909 Unspecified asthma, uncomplicated; F32.9 Major depressive disorder, single episode, unspecified; E11.9 Type 2 diabetes mellitus without complications; Z87.891 Personal history of nicotine dependence; Z86.19 Personal history of other infectious and parasitic diseases; Z88.8 Allergy status to other drugs, medicaments and biological substances; Z88.1 Allergy status to other antibiotic agents; Z88.0 Allergy status to penicillin; Z91.048 Other nonmedicinal substance allergy status; Z91.018 Allergy to other foods; Z79.899 Other long term (current) drug therapy
CPT/HCPCS: 36415; 80053; 83605; 84484; 85025; 87040; 93005; 99285-25; A9270-GY

== ENCOUNTER 2022-01-30 20:54 | Emergency (ER) | payer BC, OTHER ==
[2022-01-30 21:46] LABS: ANION GAP 8.6 mEq/L (7-13)
[2022-01-30 23:13] LABS: CORONAVIRUS COVID-19 NAA NEGATIVE (NEGATIVE)
[2022-01-30] MEDS ORDERED: Azithromycin 250 MG Tab PO ONE (23:19)
[2022-01-30 23:23] VITALS: BP 111/58; PULSE 82
== END 2022-01-30 23:29 | disposition home or self-care (01) ==
LOC: DL.ED 20:54
DX: J40 Bronchitis, not specified as acute or chronic (principal); I10 Essential (primary) hypertension; E11.9 Type 2 diabetes mellitus without complications; Z88.0 Allergy status to penicillin; Z91.048 Other nonmedicinal substance allergy status; Z88.1 Allergy status to other antibiotic agents; Z91.018 Allergy to other foods; Z79.899 Other long term (current) drug therapy; Z79.84 Long term (current) use of oral hypoglycemic drugs; Z87.891 Personal history of nicotine dependence; Z20.822 Contact with and (suspected) exposure to COVID-19
CPT/HCPCS: 0240U; 36415; 71045; 80053; 83605; 84484; 85025; 93005; 93010; 99284; A9270

== ENCOUNTER 2022-12-16 20:56 | Emergency (ER) | payer BC, OTHER ==
[2022-12-16 21:28] VITALS: BP 133/91; PULSE 78
[2022-12-16 22:13] LABS: CORONAVIRUS COVID-19 NAA NEGATIVE (NEGATIVE); INFLUENZA A NAA NEGATIVE (NEGATIVE); INFLUENZA B NAA NEGATIVE (NEGATIVE); RESPIRATORY SYNCYTIAL VIR NAA NEGATIVE (NEGATIVE)
== END 2022-12-16 21:48 | disposition home or self-care (01) ==
LOC: DL.ED 20:56
DX: J06.9 Acute upper respiratory infection, unspecified (principal); J45.909 Unspecified asthma, uncomplicated; E11.9 Type 2 diabetes mellitus without complications; I10 Essential (primary) hypertension; Z88.0 Allergy status to penicillin; Z88.4 Allergy status to anesthetic agent; Z88.8 Allergy status to other drugs, medicaments and biological substances; Z91.048 Other nonmedicinal substance allergy status; Z91.09 Other allergy status, other than to drugs and biological substances; Z91.018 Allergy to other foods; Z79.899 Other long term (current) drug therapy; Z79.84 Long term (current) use of oral hypoglycemic drugs; Z86.16 Personal history of COVID-19; Z87.891 Personal history of nicotine dependence; Z20.822 Contact with and (suspected) exposure to COVID-19
CPT/HCPCS: 0241U; 99283

== ENCOUNTER 2024-07-18 06:06 | Day surgery (SDC) | payer BC, OTHER ==
[2024-07-18] MEDS: Dextrose 5%-0.45% NaCl 1,000 ML IV SCH (06:33)
[2024-07-18] MEDS ORDERED: Midazolam 1 MG/ML 2 ML SDV ONE (06:48)
[2024-07-18] MEDS ORDERED: fentaNYL 100 MCG/2 ML SDV IV ONE (06:49)
[2024-07-18] MEDS ORDERED: Midazolam 1 MG/ML 2 ML SDV IV ONE (06:49)
[2024-07-18] MEDS ORDERED: fentaNYL 100 MCG/2 ML SDV ONE (06:49)
[2024-07-18] MEDS: fentaNYL 100 MCG/2 ML SDV IV ONE ×2 (07:40)
[2024-07-18] MEDS: Midazolam 1 MG/ML 2 ML SDV IV ONE ×3 (07:41→07:47)
[2024-07-18 09:35] VITALS: BP 118/55; PULSE 69
== END 2024-07-18 09:25 | disposition home or self-care (01) ==
LOC: DL.ENDO 06:06
PROVIDERS: ATTEND Internal Medicine Gastroenterology
DX: Z12.11 Encounter for screening for malignant neoplasm of colon (principal); D12.3 Benign neoplasm of transverse colon
CPT/HCPCS: J2250; J3010; J7799